=== PATIENT | female | born 1960 | race Caucasian/White ===

== ENCOUNTER 2018-06-12 17:38 | Emergency (ER) | payer SELFPAY ==
[~2018-06-12] VITALS: Ht 144.8 cm; Wt 64.4 kg
[2018-06-12 17:38] VITALS: BP 150/84
--- NOTE | 2018-06-12 17:38 | NUR ---
Shiloh chase in ED - 06/12/18 at 1747 by [facility] PT BIBA BLS TO BED 7
--- NOTE | 2018-06-12 17:38 | NUR ---
PT BIBA BLS TO BED 6
--- NOTE | 2018-06-12 17:49 | NUR ---
PATIENT BIB [facility] TO ED WITH THE CHIEF C/O HEAD PAIN DUE TO RTA. NO LOC PER [facility] [place] PERSONNEL. DENIES N/V/D; DENIES DIZZINESS. NO EXTERNAL INJURY NOTED ON HEAD. SKIN IS PINK/WARM/DRY; AAOX4 WITH EVEN AND STEADY GAIT; LUNGS CLEAR BL; HR EVEN AND REGULAR; PT DENIES ANY FEVER, CP, SOB, OR COUGH AT THIS TIME; PATIENT STATES HEAD PAIN OF 3/10 AT THIS TIME; VSS; PATIENT POSITIONED FOR COMFORT; HOB ELEVATED; BEDRAILS UP X2; BED DOWN. ER MD MADE AWARE OF PT STATUS.
--- NOTE | 2018-06-12 19:22 | NUR ---
REPORT GIVEN TO BODY REPAIRER RN FOR CONTINUITY OF CARE.
--- NOTE | 2018-06-12 19:22 | NUR ---
RESTING IN BED. NO C/O PAIN AT THIS TIME. NO CHANGE IN LOC. VS WNL.
[2018-06-12 19:33] VITALS: BP 123/84
== END 2018-06-12 19:33 | disposition home or self-care (01) ==
LOC: MED 17:38
DX: S09.90XA Unspecified injury of head, initial encounter (principal); V89.2XXA Person injured in unspecified motor-vehicle accident, traffic, initial encounter; Y93.89 Activity, other specified; Y92.89 Other specified places as the place of occurrence of the external cause; Y99.8 Other external cause status
CPT/HCPCS: 70450; 99284